=== PATIENT | female | born 1990 | race Caucasian/White ===

== ENCOUNTER 2016-09-05 11:14 | Emergency (ER) | payer MEDICAID, OTHER ==
[2016-09-05 11:25] VITALS: BP 156/118
[2016-09-05] MEDS ORDERED: diphenhydrAMINE 50 MG/ML SDV IVPUSH ONE (11:50)
[2016-09-05] MEDS ORDERED: Sodium Chloride 0.9% 10 ML Syringe FLUSH PRN (11:50)
[2016-09-05] MEDS ORDERED: Sodium Chloride 0.9% 1,000 ML IV ONE (11:50)
[2016-09-05] MEDS ORDERED: Haloperidol Lactate 5 MG/ML SDV IVPUSH ONE (11:50)
--- NOTE | 2016-09-05 11:53 | EDM.PDOC ---
ED HPI GENERAL MEDICAL PROBLEM - General Chief Complaint: Headache Stated Complaint: HEADACHE Time Seen by Provider: 09/05/16 11:32 Source of Information: Reports: Patient History Limitations: Reports: No Limitations - History of Present Illness INITIAL COMMENTS - FREE TEXT/NARRATIVE: 26-year-old female presents for evaluation and treatment of a headache. Patient reports that the headache began as a mild headache around 5 AM this morning. She states that she attempted to go back to sleep the headache and became severe and woke her from sleep around 6 AM and has been severe since. She reports that it is located across the front of her head and behind her eyes. She reports associated symptoms of nausea, vomiting, photophobia, phonophobia and intolerances to smells. She is unsure if she's having any neck pain or if this is the pain radiating from her head. Patient also complains of a sore throat which is had for the last 3-4 days. She states she has been around her nephew was recently diagnosed with strep. Patient denies any fevers, chills, back pain, cough or urinary symptoms. She denies any recent travels or new foods. She is unsure of her last menstrual period. Patient reports that she does not often gets headaches and this is the worst headache she has experienced. Onset: Today, Unknown/Unsure Location: Reports: Head Treatments [employer]: Reports: Acetaminophen base of head Pain Score (Numeric/FACES): 9 - Related Data Allergies Allergy/AdvReac Type Severity Reaction Status Date / Time fluoxetine [From Prozac] Allergy Swelling Verified 09/05/16 11:25 Sulfa (Sulfonamide Allergy Hives Verified 09/05/16 11:25 Antibiotics) antibiotic? Allergy Hives Uncoded 09/05/16 11:25 Home Meds: Home Meds Albuterol Inhaler. 2 puff INH Q4H PRN 04/19/15 [History] Losartan/Hctz. 1 tab PO DAILY 04/19/15 [History] Lovastatin. 1 tab PO DAILY 04/19/15 [History] Omeprazole [Prilosec] 40 mg PO BID 04/19/15 [History] Loperamide [Imodium] 2 mg PO ASDIRECTED 09/05/16 [History] Sertraline [Zoloft] 100 mg PO DAILY 09/05/16 [History] Past Medical History Cardiovascular History: Reports: High Cholesterol, Hypertension, Other (See Below) Other Cardiovascular History: atrial septal defect repair 1998 Respiratory History: Reports: Asthma Gastrointestinal History: Reports: GERD, Other (See Below) Other Gastrointestinal History: obesity Psychiatric History: Reports: Depression Endocrine/Metabolic History: Reports: Diabetes, Type II Social & Family History - Family History Family Medical History: Noncontributory - Tobacco Use Smoking Status *Q: Current Some Day Smoker Years of Tobacco use: 4 Packs/Tins Daily: 0.1 - Caffeine Use Caffeine Use: Reports: Soda - Recreational Drug Use Recreational Drug Use: No ED ROS GENERAL - Review of Systems Review Of Systems: See Below Constitutional: Reports: Malaise. Denies: Fever (felt warm; no documented fever ), Chills HEENT: Reports: Throat Pain. Denies: Ear Pain Respiratory: Denies: Cough GI/Abdominal: Reports: Nausea, Vomiting. Denies: Abdominal Pain : Reports: No Symptoms. Denies: Dysuria Musculoskeletal: Reports: Neck Pain (unsure if having neck pain or pain is radiating from head). Denies: Back Pain Neurological: Reports: Headache - Physical Exam Exam: See Below Exam Limited By: No Limitations General Appearance: Alert, WD/WN, Moderate Distress, Obese Eye Exam: Bilateral Eye: PERRL Ears: Normal External Exam, Normal Canal, Hearing Grossly Normal Nose: Normal Inspection Throat/Mouth: Normal Inspection, Normal Lips, Normal Voice, No Airway Compromise , Other (no tonsilar exudates, minimal posterior oropharynx erythema) Head Exam: Atraumatic, Normocephalic Neck: Normal Inspection, Supple, Non-Tender, Full Range of Motion Respiratory/Chest: No Respiratory Distress, Lungs Clear Cardiovascular: Normal Peripheral Pulses, Regular Rate, Rhythm, No Murmur Neuro Exam (Abbreviated): Alert, Oriented, Normal Cognition Back Exam: Normal Inspection. No: CVA Tenderness (L), CVA Tenderness (R) Psychiatric: Normal Affect, Normal Mood Skin Exam: Warm, Dry, Normal Color Course - Vital Signs Last Recorded V/S: Last Vital Signs Temp 36.7 C 09/05/16 11:20 Pulse 86 09/05/16 11:20 Resp 18 09/05/16 11:20 BP 156/118 H 09/05/16 11:20 Pulse Ox 100 09/05/16 11:20 - Orders/Labs/Meds Labs: Laboratory Tests 09/05/16 09/05/16 09/05/16 Range/Units 12:00 12:05 12:05 WBC 16.53 H (3.98-10.04) K/mm3 RBC 5.57 H (3.98-5.22) M/mm3 Hgb 14.6 (11.2-15.7) gm/L Hct 43.5 (34.1-44.9) % MCV 78.1 L (79.4-94.8) fl MCH 26.2 (25.6-32.2) pg MCHC 33.6 (32.2-35.5) g/dl RDW Std Deviation 37.6 (36.4-46.3) fL Plt Count 370 H (182-369) K/mm3 MPV 10.0 (9.4-12.3) fl Neut % (Auto) 70.5 (34.0-71.1) % Lymph % (Auto) 22.6 (19.3-51.7) % Chase % (Auto) 5.1 (4.7-12.5) % Eos % (Auto) 1.3 (0.7-5.8) Baso % (Auto) 0.3 (0.1-1.2) % Neut # (Auto) 11.66 H (1.56-6.13) K/mm3 Lymph # (Auto) 3.73 (1.18-3.74) K/mm3 Chase # (Auto) 0.84 H (0.24-0.36) K/mm3 Eos # (Auto) 0.21 (0.04-0.36) K/mm3 Baso # (Auto) 0.05 (0.01-0.08) K/mm3 Sodium 140 (136-145) mEq/L Potassium 4.1 (3.5-5.1) mEq/L Chloride 104 (98-107) mEq/L Carbon Dioxide 24 (21-32) mEq/L Anion Gap 16.1 H (5-15) BUN 8 (7-18) mg/dL Creatinine 0.6 (0.55-1.02) mg/dL Est Cr Clr Drug Dosing TNP Estimated GFR (MDRD) > 60 (>60) mL/min BUN/Creatinine Ratio 13.3 L (14-18) Glucose 133 H (74-106) mg/dL Calcium 9.3 (8.5-10.1) mg/dL Total Bilirubin 0.5 (0.2-1.0) mg/dL AST 20 (15-37) U/L ALT 52 (14-59) U/L Alkaline Phosphatase 74 (46-116) U/L C-Reactive Protein (<1.0) mg/dL Total Protein 8.2 (6.4-8.2) g/dl Albumin 3.9 (3.4-5.0) g/dl Globulin 4.3 gm/dL Albumin/Globulin Ratio 0.9 L (1-2) HCG, Qual (NEGATIVE) Urine Color Yellow (Yellow) Urine Appearance Clear (Clear) Urine pH 7.0 (5.0-8.0) Ur Specific [place] 1.025 (1.005-1.030) Urine Protein Negative (Negative) Urine Glucose (UA) Negative (Negative) Urine Ketones Negative (Negative) Urine Occult Blood Negative (Negative) Urine Nitrite Negative (Negative) Urine Bilirubin Negative (Negative) Urine Urobilinogen 0.2 (0.2-1.0) Ur Leukocyte Esterase Negative (Negative) Urine RBC Not seen (0-5) /hpf Urine WBC 0-5 (0-5) /hpf Ur Epithelial Cells 5-10 H (0-5) /hpf Urine Bacteria Few (FEW) /hpf Urine Mucus Few (FEW) /hpf Monoscreen (NEGATIVE) 09/05/16 09/05/16 09/05/16 Range/Units 12:05 12:05 12:05 WBC (3.98-10.04) K/mm3 RBC (3.98-5.22) M/mm3 Hgb (11.2-15.7) gm/L Hct (34.1-44.9) % MCV (79.4-94.8) fl MCH (25.6-32.2) pg MCHC (32.2-35.5) g/dl RDW Std Deviation (36.4-46.3) fL Plt Count (182-369) K/mm3 MPV (9.4-12.3) fl Neut % (Auto) (34.0-71.1) % Lymph % (Auto) (19.3-51.7) % Chase % (Auto) (4.7-12.5) % Eos % (Auto) (0.7-5.8) Baso % (Auto) (0.1-1.2) % Neut # (Auto) (1.56-6.13) K/mm3 Lymph # (Auto) (1.18-3.74) K/mm3 [place] # (Auto) (0.24-0.36) K/mm3 Eos # (Auto) (0.04-0.36) K/mm3 Baso # (Auto) (0.01-0.08) K/mm3 Sodium (136-145) mEq/L Potassium (3.5-5.1) mEq/L Chloride (98-107) mEq/L Carbon Dioxide (21-32) mEq/L Anion Gap (5-15) BUN (7-18) mg/dL Creatinine (0.55-1.02) mg/dL Est Cr Clr Drug Dosing Estimated GFR (MDRD) (>60) mL/min BUN/Creatinine Ratio (14-18) Glucose (74-106) mg/dL Calcium (8.5-10.1) mg/dL Total Bilirubin (0.2-1.0) mg/dL AST (15-37) U/L ALT (14-59) U/L Alkaline Phosphatase (46-116) U/L C-Reactive Protein 0.6 (<1.0) mg/dL Total Protein (6.4-8.2) g/dl Albumin (3.4-5.0) g/dl Globulin gm/dL Albumin/Globulin Ratio (1-2) HCG, Qual Negative (NEGATIVE) Urine Color (Yellow) Urine Appearance (Clear) Urine pH (5.0-8.0) Ur Specific [place] (1.005-1.030) Urine Protein (Negative) Urine Glucose (UA) (Negative) Urine Ketones (Negative) Urine Occult Blood (Negative) Urine Nitrite (Negative) Urine Bilirubin (Negative) Urine Urobilinogen (0.2-1.0) Ur Leukocyte Esterase (Negative) Urine RBC (0-5) /hpf Urine WBC (0-5) /hpf Ur Epithelial Cells (0-5) /hpf Urine Bacteria (FEW) /hpf Urine Mucus (FEW) /hpf Monoscreen Negative (NEGATIVE) Meds: Medications Discontinued Medications Generic Name Dose Route Start Last Admin Trade Name Freq PRN Reason Stop Dose Admin Diphenhydramine HCl 50 mg 09/05/16 11:50 09/05/16 12:13 Benadryl IVPUSH 09/05/16 11:51 50 mg ONETIME ONE Administration Haloperidol Lactate 5 mg 09/05/16 11:50 09/05/16 12:18 Haldol IVPUSH 09/05/16 11:51 5 mg ONETIME ONE Administration Sodium Chloride 1,000 mls @ 999 mls/hr 09/05/16 11:50 09/05/16 12:12 Normal Saline IV 09/05/16 12:50 999 mls/hr ONETIME ONE Administration Sodium Chloride 10 ml 09/05/16 11:50 09/05/16 12:17 Saline Flush FLUSH 10 ml ASDIRECTED PRN Administration Keep Vein Open - Radiology Interpretation Free Text/Narrative:: Ct of the head without contrast impression per [facility]: No acute findings. CT Results Date: 09/05/16 - Re-Assessments/Exams Free Text/Narrative Re-Assessment/Exam: 09/05/16 13:00 Labs returned. White blood cell count 16.53, hemoglobin 14.6 and platelets are 370. CRP is 0.6. hCG is negative. Rapid strep is negative. Chase was negative. Sodium is 140, potassium is 4.1 and chloride is 104. Anion gap is 16.1. UA is negative for any signs of infection. I reviewed the lab results with the patient. We are awaiting her CT of her head report. She reports that her headache now feels like a 6 out of 10. Will consider giving Toradol once her CT is clear. She reports that she is feels tired at this time. I believe her elevated white blood cell count is likely due to a stress response. I have a low suspicion for meningitis given her physical exam (normal neck ROM, afebrile, normal demeanor, migraine-like headache complaint). 09/05/16 13:47 Nursing staff reports her headache is now a 3 out of 10 and she feels ready to go. I have checked on the patient. She is sleeping. Free to go whenever she feels ready. 09/05/16 14:[address] report with the patient. She is tired and would like to go home at this time. Discharge instructions this documented. Departure - Departure Time of Disposition: 14:15 Disposition: Home, Self-Care 01 Condition: Fair Clinical Impression: Migraine - Discharge Information Instructions: Migraine Headache, [id number] Referrals: Catherine Mittal DO [Primary Care Provider] - Forms: ED Department Discharge Additional Instructions: Go home and rest in a dark quiet room. OTC tylenol or motrin as needed for pain. Drink plenty of fluids. Follow-up with PCP if headaches continue. Please return to the ER should your symptoms change or worsen.
--- NOTE | 2016-09-07 14:38 | CT ---
Head CT Technique: Multiple axial sections through the brain were obtained. Intravenous contrast was not utilized. Comparison: Previous head CT is not available. Findings: Ventricles along with basal cisterns and sulci over the convexities are within normal limits for the patient's age. No abnormal parenchymal densities are seen. No evidence of intracranial hemorrhage. No midline shift or mass effect is seen. Bone window settings were reviewed which show no discrete calvarial abnormality. Visualized sinuses are clear. Impression: 1. No acute intracranial abnormality is identified on noncontrast head CT study. Diagnostic code #1 I agree with preliminary report issued by [facility] ([facility] preliminary report dictated on 09/05/16, 2:27 PM Central Time)
== END 2016-09-05 14:35 | disposition home or self-care (01) ==
LOC: JD.ED 11:14
DX: G43.909 Migraine, unspecified, not intractable, without status migrainosus (principal); J45.909 Unspecified asthma, uncomplicated; F32.9 Major depressive disorder, single episode, unspecified; E11.9 Type 2 diabetes mellitus without complications; E78.00 Pure hypercholesterolemia, unspecified; I10 Essential (primary) hypertension; F17.210 Nicotine dependence, cigarettes, uncomplicated; Z88.2 Allergy status to sulfonamides; Z88.1 Allergy status to other antibiotic agents; Z79.899 Other long term (current) drug therapy
CPT/HCPCS: 36415; 70450; 80053; 81001; 84703; 85025; 86140; 86308; 87081; 87430; 96361; 96374; 96375; 99284; J1200; J1630; J7040; J7050

== ENCOUNTER 2018-06-09 11:05 | Emergency (ER) | payer BC, OTHER ==
[2018-06-09 11:39] VITALS: BP 146/90
[2018-06-09] MEDS ORDERED: Ondansetron 4 MG/2 ML SDV IVPUSH ONE (12:14)
[2018-06-09] MEDS ORDERED: Sodium Chloride 0.9% 10 ML Syringe FLUSH PRN (12:14)
[2018-06-09] MEDS ORDERED: Sodium Chloride 0.9% 1,000 ML IV SCH (12:15)
--- NOTE | 2018-06-09 15:43 | EDM.PDOC ---
ED HPI GENERAL MEDICAL PROBLEM - General Chief Complaint: Abdominal Pain Stated Complaint: RECENT GASTRIC BYPASS-DIARRHEA,STOMACH PAIN Time Seen by Provider: 06/09/18 12:13 Source of Information: Reports: Patient, RN Notes Reviewed - History of Present Illness INITIAL COMMENTS - FREE TEXT/NARRATIVE: 27-year-old female had onset of abdominal pain, nausea and diarrhea yesterday that continues today. Quite frequent watery diarrhea yesterday, less frequent today. She's had nausea but not vomiting. She had a gastric bypass procedure done about 2 and half weeks ago so that is of concern to her. No fever or chills. No chest pain or difficulty breathing. Left Upper Abdomen Pain Score (Numeric/FACES): 4 - Related Data Allergies Allergy/AdvReac Type Severity Reaction Status Date / Time cephalexin Allergy Hives Verified 06/09/18 11:32 fluoxetine [From Prozac] Allergy Swelling Verified 09/05/16 11:25 Sulfa (Sulfonamide Allergy Hives Verified 09/05/16 11:25 Antibiotics) Home Meds: Home Meds Albuterol Inhaler. 2 puff INH Q4H PRN 04/19/15 [History] Losartan/Hctz. 1 tab PO DAILY 04/19/15 [History] Lovastatin. 1 tab PO DAILY 04/19/15 [History] Omeprazole [Prilosec] 40 mg PO BID 04/19/15 [History] Sertraline [Zoloft] 100 mg PO DAILY 09/05/16 [History] Dulaglutide [Trulicity] 1.5 mg SQ WEEKLY 06/09/18 [History] Ondansetron [Zofran ODT] 4 mg PO Q6H PRN #14 tab.dis 06/09/18 [Rx] Past Medical History Cardiovascular History: Reports: High Cholesterol, Hypertension, Other (See Below) Other Cardiovascular History: atrial septal defect repair 1998 Respiratory History: Reports: Asthma Gastrointestinal History: Reports: GERD, Other (See Below) Other Gastrointestinal History: obesity Psychiatric History: Reports: Depression Endocrine/Metabolic History: Reports: Diabetes, Type II Social & Family History - Family History Family Medical History: Noncontributory - Tobacco Use Smoking Status *Q: Current Every Day Smoker Years of Tobacco use: 9 Packs/Tins Daily: 1 - Caffeine Use Caffeine Use: Reports: None - Recreational Drug Use Recreational Drug Use: No ED ROS GENERAL - Review of Systems Review Of Systems: See Below Constitutional: Reports: Chills. Denies: Fever HEENT: Denies: Throat Pain Respiratory: Denies: Shortness of Breath Cardiovascular: Denies: Chest Pain GI/Abdominal: Reports: Abdominal Pain, Diarrhea, Nausea. Denies: Hematochezia, Melena, Vomiting Musculoskeletal: Reports: No Symptoms Skin: Reports: No Symptoms Neurological: Reports: No Symptoms ED EXAM, GI/ABD - Physical Exam Exam: See Below General Appearance: Alert, Mild Distress Eyes: Bilateral: Normal Appearance Throat/Mouth: Normal Inspection, Normal Oropharynx Head: Atraumatic Neck: Supple Respiratory/Chest: No Respiratory Distress, Lungs Clear, Normal Breath Sounds Cardiovascular: Regular Rate, Rhythm GI/Abdominal Exam: Tender (Upper mid abdomen and mid abdomen, lower abdomen soft and nontender). No: Guarding, Rebound Extremities: Normal Inspection, Normal Range of Motion Neurological: Alert, Oriented, No Motor/Sensory Deficits Skin Exam: Warm, Dry, Normal Color Course - Vital Signs Last Recorded V/S: Last Vital Signs Temp 99 F 06/09/18 11:36 Pulse 78 06/09/18 11:36 Resp 18 06/09/18 11:36 BP 146/90 H 06/09/18 11:36 Pulse Ox 98 06/09/18 11:36 - Orders/Labs/Meds Orders: Active Orders 24 hr Category Date Time Status Peripheral IV Care [RC] . DIRECTED Care 06/09/18 12:14 Active Abdomen 2V AP Flat Upright [CR] Stat Exams 06/09/18 12:15 Taken Peripheral IV Insertion Adult [OM.PC] Stat Oth 06/09/18 12:14 Ordered Labs: Laboratory Tests 06/09/18 06/09/18 06/09/18 Range/Units 12:30 12:30 12:30 WBC 11.32 H (3.98-10.04) K/mm3 RBC 5.30 H (3.98-5.22) M/mm3 Hgb 13.5 (11.2-15.7) gm/L Hct 41.5 (34.1-44.9) % MCV 78.3 L (79.4-94.8) fl MCH 25.5 L (25.6-32.2) pg MCHC 32.5 (32.2-35.5) g/dl RDW Std Deviation 39.4 (36.4-46.3) fL Plt Count 369 (182-369) K/mm3 MPV 10.3 (9.4-12.3) fl Neut % (Auto) 62.2 (34.0-71.1) % Lymph % (Auto) 29.3 (19.3-51.7) % [place] % (Auto) 5.9 (4.7-12.5) % Eos % (Auto) 1.9 (0.7-5.8) Baso % (Auto) 0.3 (0.1-1.2) % Neut # (Auto) 7.05 H (1.56-6.13) K/mm3 Lymph # (Auto) 3.32 (1.18-3.74) K/mm3 [place] # (Auto) 0.67 H (0.24-0.36) K/mm3 Eos # (Auto) 0.21 (0.04-0.36) K/mm3 Baso # (Auto) 0.03 (0.01-0.08) K/mm3 Sodium 140 (136-145) mEq/L Potassium 3.9 (3.5-5.1) mEq/L Chloride 104 (98-107) mEq/L Carbon Dioxide 23 (21-32) mEq/L Anion Gap 16.9 H (5-15) BUN 9 (7-18) mg/dL Creatinine 0.6 (0.55-1.02) mg/dL Est Cr Clr Drug Dosing 134.54 mL/min Estimated GFR (MDRD) > 60 (>60) mL/min BUN/Creatinine Ratio 15.0 (14-18) Glucose 80 (74-106) mg/dL Calcium 9.4 (8.5-10.1) mg/dL Total Bilirubin 0.4 (0.2-1.0) mg/dL AST 19 (15-37) U/L ALT 46 (14-59) U/L Alkaline Phosphatase 63 (46-116) U/L Total Protein 7.8 (6.4-8.2) g/dl Albumin 3.7 (3.4-5.0) g/dl Globulin 4.1 gm/dL Albumin/Globulin Ratio 0.9 L (1-2) HCG, Qual Negative (NEGATIVE) Meds: Medications Discontinued Medications Generic Name Dose Route Start Last Admin Trade Name Freq PRN Reason Stop Dose Admin Sodium Chloride 1,000 mls @ 999 mls/hr 06/09/18 12:15 06/09/18 12:54 Normal Saline IV 999 mls/hr ONETIME ELLIS Administration Ondansetron HCl 4 mg 06/09/18 12:14 06/09/18 12:55 Zofran IVPUSH 06/09/18 12:15 4 mg ONETIME ONE Administration Sodium Chloride 10 ml 06/09/18 12:14 06/09/18 12:55 Saline Flush FLUSH 10 ml ASDIRECTED PRN Administration Keep Vein Open - Re-Assessments/Exams Free Text/Narrative Re-Assessment/Exam: 06/09/18 19:26 Labs did come back relatively normal white blood count, anion gap 30 mildly high. Did give 1 L of fluid and zofran IVl With that she was feeling much better. Discharge instructions as documented. Flat and upright of the abdomen looked fine. Departure - Departure Time of Disposition: 15:39 Disposition: Home, Self-Care 01 Clinical Impression: Abdominal pain Qualifiers: Abdominal location: upper abdomen, unspecified Qualified Code(s): R10.10 - Upper abdominal pain, unspecified Diarrhea Qualifiers: Diarrhea type: unspecified type Qualified Code(s): R19.7 - Diarrhea, unspecified Vomiting Qualifiers: Vomiting type: unspecified Vomiting Intractability: non-intractable - Discharge Information Prescriptions: Ondansetron [Zofran ODT] 4 mg PO Q6H PRN #14 tab.dis PRN Reason: Vomiting Instructions: Vomiting, Adult, Diarrhea, Adult, [id number] Referrals: Maribel Khalil PA-C [Primary Care Provider] - Forms: ED Department Discharge Additional Instructions: Clear liquids until this evening, then very careful bland diet as tolerated. Zofran every 6-8 hours if needed for further nausea or vomiting. Also recommend that you start probiotic and take that twice daily for the next week and thereafter as needed. Follow-up with your regular medical provider in about 3 or 4 days for recheck, return to ED as needed if symptoms worsening in any way. - My Orders Last 24 Hours: My Active Orders 06/09/18 12:14 Peripheral IV Care [RC] . DIRECTED Peripheral IV Insertion Adult [OM.PC] Stat 06/09/18 12:15 Abdomen 2V AP Flat Upright [CR] Stat - Assessment/Plan Last 24 Hours: My Active Orders 06/09/18 12:14 Peripheral IV Care [RC] . DIRECTED Peripheral IV Insertion Adult [OM.PC] Stat 06/09/18 12:15 Abdomen 2V AP Flat Upright [CR] Stat
--- NOTE | 2018-06-10 07:19 | CR ---
Abdomen: Supine and upright views of the abdomen were obtained. Comparison: No prior abdominal imaging. Slightly prominent gas within small bowel loops is seen which shows no significant dilatation. Surgical anastomotic sutures are seen within the left upper abdomen. Bowel gas pattern is otherwise unremarkable. Bony structures are unremarkable. Impression: 1. Slightly prominent gas within nondilated small bowel loops within the left upper abdomen. Minimal partial obstruction or slight ileus is possible. 2. Previous abdominal surgery. Diagnostic code #3 MTDD
== END 2018-06-09 16:08 | disposition home or self-care (01) ==
LOC: JD.ED 11:05
DX: R10.10 Upper abdominal pain, unspecified (principal); R19.7 Diarrhea, unspecified; R11.2 Nausea with vomiting, unspecified; E78.00 Pure hypercholesterolemia, unspecified; I10 Essential (primary) hypertension; E11.9 Type 2 diabetes mellitus without complications; F17.210 Nicotine dependence, cigarettes, uncomplicated; Z88.8 Allergy status to other drugs, medicaments and biological substances; Z79.899 Other long term (current) drug therapy
CPT/HCPCS: 36415; 74019; 80053; 84703; 85025; 96361; 96374; 99284; J2405; J7040

== ENCOUNTER 2019-01-09 14:36 | Emergency (ER) | payer BC ==
[2019-01-09 14:49] VITALS: BP 155/87; PULSE 68
[2019-01-09] MEDS ORDERED: Sodium Chloride 0.9% 10 ML Syringe FLUSH PRN (15:05)
[2019-01-09 16:17] LABS: HEMOGLOBIN A1C 5.4 % (4.50-6.20)
[2019-01-09] MEDS ORDERED: HYDROmorphone 1 MG/ML Syringe IVPUSH ONE (17:13)
--- NOTE | 2019-01-09 17:19 | EDM.PDOC ---
ED HPI GENERAL MEDICAL PROBLEM - General Chief Complaint: Diabetic Complaint Stated Complaint: LOW BLOOD SUGAR Time Seen by Provider: 01/09/19 14:43 Source of Information: Reports: Patient History Limitations: Reports: No Limitations - History of Present Illness INITIAL COMMENTS - FREE TEXT/NARRATIVE: The patient presents with hypoglycemia and a headache. She has a history of type II diabetes but she had gastric bypass in the past year and lost weight. Now she is diet controlled. She is off all of her diabetes meds. She has a glucometer and she was taking her blood sugars and they have been up and down with a headache. She has been as low at 50. She is sucking a sucker when she comes in and bedside glucose was 63. She has no fever, chills, cough, chest pain or shortness of breath. She has no abdominal pain, nausea or vomiting. She has no numbness or weakness. Onset: Gradual Duration: Day(s): (4) Location: Reports: Head Quality: Reports: Ache Severity: Moderate Improves with: Reports: None Worsens with: Reports: None Associated Symptoms: Reports: No Other Symptoms Headache Pain Score (Numeric/FACES): 5 - Related Data Allergies Allergy/AdvReac Type Severity Reaction Status Date / Time cephalexin Allergy Hives Verified 06/09/18 11:32 fluoxetine [From Prozac] Allergy Swelling Verified 09/05/16 11:25 NSAIDS (Non-Steroidal Allergy Stomach Verified 01/09/19 14:49 Anti-Inflamma Upset Sulfa (Sulfonamide Allergy Hives Verified 09/05/16 11:25 Antibiotics) Home Meds: Home Meds Albuterol Inhaler. 2 puff INH Q4H PRN 04/19/15 [History] Losartan/Hctz. 75 mg PO DAILY 04/19/15 [History] Sertraline [Zoloft] 100 mg PO DAILY 09/05/16 [History] Past Medical History Cardiovascular History: Reports: High Cholesterol, Hypertension, Other (See Below) Other Cardiovascular History: atrial septal defect repair 1998 Respiratory History: Reports: Asthma Gastrointestinal History: Reports: GERD, Other (See Below) Other Gastrointestinal History: obesity Psychiatric History: Reports: Depression Endocrine/Metabolic History: Reports: Diabetes, Type II Social & Family History - Family History Family Medical History: Noncontributory - Tobacco Use Smoking Status *Q: Never Smoker - Caffeine Use Caffeine Use: Reports: None ED ROS GENERAL - Review of Systems Review Of Systems: See Below Constitutional: Reports: No Symptoms HEENT: Reports: No Symptoms Respiratory: Reports: No Symptoms Cardiovascular: Reports: No Symptoms Endocrine: Reports: No Symptoms GI/Abdominal: Reports: No Symptoms : Reports: No Symptoms Musculoskeletal: Reports: No Symptoms Skin: Reports: No Symptoms Neurological: Reports: Headache ED EXAM GENERAL NO PERIP PULSE - Physical Exam Exam: See Below Exam Limited By: No Limitations General Appearance: Alert, No Apparent Distress Ears: Normal External Exam Nose: Normal Inspection Head: Atraumatic, Normocephalic Neck: Normal Inspection Respiratory/Chest: No Respiratory Distress, Lungs Clear, Normal Breath Sounds Cardiovascular: Regular Rate, Rhythm, No Edema, No Murmur GI/Abdominal: Soft, Non-Tender, No Organomegaly, No Mass Back Exam: Normal Inspection Extremities: Normal Inspection Neurological: Alert, Oriented, No Motor/Sensory Deficits Course - Vital Signs Last Recorded V/S: Last Vital Signs Temp 98.3 F 01/09/19 14:44 Pulse 68 01/09/19 14:44 Resp 16 01/09/19 14:44 BP 155/87 H 01/09/19 14:44 Pulse Ox 96 01/09/19 14:44 - Orders/Labs/Meds Orders: Active Orders 24 hr Category Date Time Status Accu Check [Blood Glucose Check, Bedside] [RC] ONETIME Care 01/09/19 17:13 Active Glucose [Blood Glucose Check, Bedside] [RC] ONETIME Care 01/09/19 14:46 Active Peripheral IV Care [RC] . DIRECTED Care 01/09/19 15:06 Active Sodium Chloride 0.9% [Saline Flush] Med 01/09/19 15:05 Active 10 ml FLUSH ASDIRECTED PRN Peripheral IV Insertion Adult [OM.PC] Stat Oth 01/09/19 15:05 Ordered Medication Orders Sodium Chloride (Saline Flush) 10 ml FLUSH ASDIRECTED PRN PRN Reason: Keep Vein Open Last Admin: 01/09/19 16:00 Dose: 10 ml Labs: Laboratory Tests 01/09/19 01/09/19 01/09/19 Range/Units 14:46 15:30 15:36 WBC 9.91 (3.98-10.04) K/mm3 RBC 5.28 H (3.98-5.22) M/mm3 Hgb 14.2 (11.2-15.7) gm/dl Hct 42.8 (34.1-44.9) % MCV 81.1 (79.4-94.8) fl MCH 26.9 (25.6-32.2) pg MCHC 33.2 (32.2-35.5) g/dl RDW Std Deviation 39.2 (36.4-46.3) fL Plt Count 367 (182-369) K/mm3 MPV 10.3 (9.4-12.3) fl Neut % (Auto) 52.2 (34.0-71.1) % Lymph % (Auto) 36.5 (19.3-51.7) % Amelia % (Auto) 6.7 (4.7-12.5) % Eos % (Auto) 3.9 (0.7-5.8) Baso % (Auto) 0.5 (0.1-1.2) % Neut # (Auto) 5.17 (1.56-6.13) K/mm3 Lymph # (Auto) 3.62 (1.18-3.74) K/mm3 Amelia # (Auto) 0.66 H (0.24-0.36) K/mm3 Eos # (Auto) 0.39 H (0.04-0.36) K/mm3 Baso # (Auto) 0.05 (0.01-0.08) K/mm3 Sodium (136-145) mEq/L Potassium (3.5-5.1) mEq/L Chloride (98-107) mEq/L Carbon Dioxide (21-32) mEq/L Anion Gap (5-15) BUN (7-18) mg/dL Creatinine (0.55-1.02) mg/dL Est Cr Clr Drug Dosing mL/min Estimated GFR (MDRD) (>60) mL/min BUN/Creatinine Ratio (14-18) Glucose (74-106) mg/dL POC Glucose 63 L (70-105) mg/dL Hemoglobin A1c (4.50-6.20) % Calcium (8.5-10.1) mg/dL Total Bilirubin (0.2-1.0) mg/dL AST (15-37) U/L ALT (14-59) U/L Alkaline Phosphatase (46-116) U/L Total Protein (6.4-8.2) g/dl Albumin (3.4-5.0) g/dl Globulin gm/dL Albumin/Globulin Ratio (1-2) Urine Color Yellow (Yellow) Urine Appearance Clear (Clear) Urine pH 6.5 (5.0-8.0) Ur Specific [place] 1.020 (1.005-1.030) Urine Protein Negative (Negative) Urine Glucose (UA) Negative (Negative) Urine Ketones Negative (Negative) Urine Occult Blood 1+ H (Negative) Urine Nitrite Negative (Negative) Urine Bilirubin Negative (Negative) Urine Urobilinogen 0.2 (0.2-1.0) Ur Leukocyte Esterase Negative (Negative) Urine RBC 0-5 (0-5) /hpf Urine WBC 0-5 (0-5) /hpf Ur Squamous Epith Cells 5-10 H (0-5) /hpf Urine Bacteria Moderate H (FEW) /hpf Urine Mucus Not seen (FEW) /hpf 01/09/19 01/09/19 01/09/19 Range/Units 15:36 15:36 17:13 WBC (3.98-10.04) K/mm3 RBC (3.98-5.22) M/mm3 Hgb (11.2-15.7) gm/dl Hct (34.1-44.9) % MCV (79.4-94.8) fl MCH (25.6-32.2) pg MCHC (32.2-35.5) g/dl RDW Std Deviation (36.4-46.3) fL Plt Count (182-369) K/mm3 MPV (9.4-12.3) fl Neut % (Auto) (34.0-71.1) % Lymph % (Auto) (19.3-51.7) % Amelia % (Auto) (4.7-12.5) % Eos % (Auto) (0.7-5.8) Baso % (Auto) (0.1-1.2) % Neut # (Auto) (1.56-6.13) K/mm3 Lymph # (Auto) (1.18-3.74) K/mm3 Amelia # (Auto) (0.24-0.36) K/mm3 Eos # (Auto) (0.04-0.36) K/mm3 Baso # (Auto) (0.01-0.08) K/mm3 Sodium 140 (136-145) mEq/L Potassium 3.9 (3.5-5.1) mEq/L Chloride 105 (98-107) mEq/L Carbon Dioxide 25 (21-32) mEq/L Anion Gap 13.9 (5-15) BUN 11 (7-18) mg/dL Creatinine 0.5 L (0.55-1.02) mg/dL Est Cr Clr Drug Dosing 159.99 mL/min Estimated GFR (MDRD) > 60 (>60) mL/min BUN/Creatinine Ratio 22.0 H (14-18) Glucose 75 (74-106) mg/dL POC Glucose 80 (70-105) mg/dL Hemoglobin A1c 5.40 (4.50-6.20) % Calcium 9.4 (8.5-10.1) mg/dL Total Bilirubin 0.3 (0.2-1.0) mg/dL AST 14 L (15-37) U/L ALT 26 (14-59) U/L Alkaline Phosphatase 68 (46-116) U/L Total Protein 7.7 (6.4-8.2) g/dl Albumin 4.0 (3.4-5.0) g/dl Globulin 3.7 gm/dL Albumin/Globulin Ratio 1.1 (1-2) Urine Color (Yellow) Urine Appearance (Clear) Urine pH (5.0-8.0) Ur Specific [place] (1.005-1.030) Urine Protein (Negative) Urine Glucose (UA) (Negative) Urine Ketones (Negative) Urine Occult Blood (Negative) Urine Nitrite (Negative) Urine Bilirubin (Negative) Urine Urobilinogen (0.2-1.0) Ur Leukocyte Esterase (Negative) Urine RBC (0-5) /hpf Urine WBC (0-5) /hpf Ur Squamous Epith Cells (0-5) /hpf Urine Bacteria (FEW) /hpf Urine Mucus (FEW) /hpf Meds: Medications Generic Name Dose Route Start Last Admin Trade Name Freq PRN Reason Stop Dose Admin Sodium Chloride 10 ml 01/09/19 15:05 01/09/19 16:00 Saline Flush FLUSH 10 ml ASDIRECTED PRN Administration Keep Vein Open Discontinued Medications Generic Name Dose Route Start Last Admin Trade Name Freq PRN Reason Stop Dose Admin Hydromorphone HCl 1 mg 01/09/19 17:13 01/09/19 17:29 Dilaudid IVPUSH 01/09/19 17:14 1 mg ONETIME ONE Administration - Re-Assessments/Exams Free Text/Narrative Re-Assessment/Exam: 01/09/19 17:24 I ordered an IV saline lock and labs. The patient would like to keep taking the sucker for sugar. Juice makes her nauseated. Her CBC looks good. Her bed side glucose is 63. Her glucose by blood draw was 75. Her UA shows no UTI. She still has a headache so I ordered some dilaudid 1mg IV. 01/09/19 17:27 Her bedside glucose was 80. Departure - Departure Time of Disposition: 18:00 Disposition: Home, Self-Care 01 Condition: Good Clinical Impression: Hypoglycemia Headache Qualifiers: Headache type: unspecified Headache chronicity pattern: acute headache Intractability: not intractable Qualified Code(s): R51 - Headache - Discharge Information *PRESCRIPTION DRUG MONITORING PROGRAM REVIEWED*: No *COPY OF PRESCRIPTION DRUG MONITORING REPORT IN PATIENT DIYA: No Referrals: Maribel Khalil PA-C [Primary Care Provider] - 1 Day Forms: ED Department Discharge Additional Instructions: Follow up with your provider tomorrow. At this time I am not finding a reason for your hypoglycemia. Talk to your provider about continuous glucose monitoring to get more data to see what is going on through the day. Please return if you are worse. - My Orders Last 24 Hours: My Active Orders 01/09/19 14:46 Glucose [Blood Glucose Check, Bedside] [RC] ONETIME 01/09/19 15:05 Sodium Chloride 0.9% [Saline Flush] 10 ml FLUSH ASDIRECTED PRN Peripheral IV Insertion Adult [OM.PC] Stat 01/09/19 15:06 Peripheral IV Care [RC] . DIRECTED 01/09/19 17:13 Accu Check [Blood Glucose Check, Bedside] [RC] ONETIME - Assessment/Plan Last 24 Hours: My Active Orders 01/09/19 14:46 Glucose [Blood Glucose Check, Bedside] [RC] ONETIME 01/09/19 15:05 Sodium Chloride 0.9% [Saline Flush] 10 ml FLUSH ASDIRECTED PRN Peripheral IV Insertion Adult [OM.PC] Stat 01/09/19 15:06 Peripheral IV Care [RC] . DIRECTED 01/09/19 17:13 Accu Check [Blood Glucose Check, Bedside] [RC] ONETIME
== END 2019-01-09 18:02 | disposition home or self-care (01) ==
LOC: JD.ED 14:36
DX: E11.649 Type 2 diabetes mellitus with hypoglycemia without coma (principal); R51 Headache; I10 Essential (primary) hypertension; J45.909 Unspecified asthma, uncomplicated; F32.9 Major depressive disorder, single episode, unspecified; E66.9 Obesity, unspecified; Z68.35 Body mass index [BMI] 35.0-35.9, adult; Z88.8 Allergy status to other drugs, medicaments and biological substances; Z88.1 Allergy status to other antibiotic agents; Z88.6 Allergy status to analgesic agent; Z88.2 Allergy status to sulfonamides; Z79.899 Other long term (current) drug therapy; Z98.84 Bariatric surgery status
CPT/HCPCS: 36415; 80053; 81001; 82962; 83036; 85025; 96374; 99284; J1170

== ENCOUNTER 2019-05-22 15:46 | Day surgery (SDC) | payer BC ==
[2019-05-22] MEDS ORDERED: Clindamycin Phosphate in D5W 600 MG in Premix Bag 1 BAG IV ONE ×2 (15:53)
[2019-05-22] MEDS ORDERED: Clindamycin Phosphate in D5W 900 MG in Premix Bag 1 BAG IV ONE ×2 (16:08)
--- NOTE | 2019-05-22 16:26 | PCM.PREANE ---
Preanesthetic Assessment - Anesthesia/Transfusion/Family Hx Anesthesia History: Prior Anesthesia Without Reaction Family History of Anesthesia Reaction: No Transfusion History: No Prior Transfusion(s) Intubation History: Unknown - Review of Systems General: No Symptoms, Weakness, Malaise Pulmonary: No Symptoms (History of asthma/Smoker:0.75 ppd times 16 years/ETOH occasionally) Cardiovascular: No Symptoms (history of HTN, elevated cholesterol/Atrial septal defect repair done in 1998), Lightheadedness (hypoglycemia) Gastrointestinal: No Symptoms (history of gastric bypass surgery 2018/GERD- improved), Abdominal Pain (06/29), Decreased Appetite Neurological: No Symptoms Other: Reports: Diabetes (diet controlled/episodes of hypoglycemia noted), Liver Problems (fatty liver), Depression, Anxiety - Physical Assessment NPO Status Date: 05/22/19 NPO Status Time: 01:00 Vital Signs: HR:68 BP:142/88 SAT:95% TEMP:98 RESP:16 Height: 1.7 m Weight: 96 kg ASA Class: 2E Mental Status: Alert & Oriented x3 Airway Class: Mallampati = 2 Dentition: Reports: Normal Dentition, Caries Thyro-Mental Finger Breadths: 3 Mouth Opening Finger Breadths: 3 ROM/Head Extension: Full Lungs: Clear to Auscultation, Normal Respiratory Effort Cardiovascular: Regular Rate, Regular Rhythm, No Murmurs - Lab Values: All labs reviewed and noted and within acceptable ranges to proceed with scheduled procedure. - Imaging/EKG Impressions: EKG: SR rate= 78(2018) - Allergies Allergies/Adverse Reactions: Allergies Allergy/AdvReac Type Severity Reaction Status Date / Time cephalexin Allergy Hives Verified 06/09/18 11:32 fluoxetine [From Prozac] Allergy Swelling Verified 09/05/16 11:25 NSAIDS (Non-Steroidal Allergy Stomach Verified 01/09/19 14:49 Anti-Inflamma Upset Sulfa (Sulfonamide Allergy Hives Verified 09/05/16 11:25 Antibiotics) - Anesthesia Plan Pre-Op Medication Ordered: None - Acknowledgements Anesthesia Type Planned: General Anesthesia Pt an Appropriate Candidate for the Planned Anesthesia: Yes Alternatives and Risks of Anesthesia Discussed w Pt/Guardian: Yes Pt/Guardian Understands and Agrees with Anesthesia Plan: Yes PreAnesthesia Questionnaire Cardiovascular History: Reports: High Cholesterol, Hypertension, Other (See Below) Other Cardiovascular History: atrial septal defect repair 1998 Respiratory History: Reports: Asthma Gastrointestinal History: Reports: GERD, Other (See Below) Other Gastrointestinal History: obesity Psychiatric History: Reports: Depression Endocrine/Metabolic History: Reports: Diabetes, Type II - HOME MEDS Home Medications: Home Meds Albuterol Inhaler. 2 puff INH Q4H PRN 04/19/15 [History] Losartan/Hctz. 75 mg PO DAILY 04/19/15 [History] Sertraline [Zoloft] 100 mg PO DAILY 09/05/16 [History] - CURRENT (IN HOUSE) MEDS Current Meds: Current Medications Clindamycin Phosphate 900 mg/ (Premix) 50 mls @ 100 mls/hr IV ONETIME ONE Stop: 05/22/19 16:37 Discontinued Medications Bupivacaine HCl/Epinephrine Bitart (Marcaine 0.5%/Epinephrine 1:200,000) Confirm Administered Dose 50 ml .ROUTE .STK-MED ONE Stop: 05/22/19 16:14 Clindamycin Phosphate 600 mg/ (Premix) 33.3333 mls @ 100 mls/hr IV ONETIME ONE Stop: 05/22/19 16:12 Lidocaine/Epinephrine (Xylocaine 1% With Epinephrine 1:100,000) Confirm Administered Dose 40 ml .ROUTE .STK-MED ONE Stop: 05/22/19 16:14
[2019-05-22] MEDS ORDERED: Lidocaine 1% 2 ML ONE (17:00)
[2019-05-22] MEDS ORDERED: HYDROmorphone 0.5 MG/0.5 ML Syringe ONE ×3 (17:09→18:36)
[2019-05-22] MEDS ORDERED: Midazolam 1 MG/ML 2 ML SDV ONE (17:09)
[2019-05-22] MEDS ORDERED: Dexamethasone 4 MG/ML 5 ML MDV ONE (17:09)
[2019-05-22] MEDS ORDERED: Rocuronium 50 MG/5 ML Vial ONE (17:09)
[2019-05-22] MEDS ORDERED: Propofol 200 MG/20 ML SDV ONE (17:09)
[2019-05-22] MEDS ORDERED: Lidocaine 1% 6 ML ONE (17:09)
[2019-05-22] MEDS ORDERED: Ondansetron 4 MG/2 ML SDV ONE (17:09)
[2019-05-22] MEDS ORDERED: Succinylcholine/Sod PF 100 MG/5 ML SYRINGE IV ONE (17:09)
[2019-05-22] MEDS ORDERED: fentaNYL 250 MCG/5 ML SDV ONE (17:10)
[2019-05-22] MEDS ORDERED: 50% Dextrose in Water 50 ML Syringe ONE (17:13)
[2019-05-22] MEDS ORDERED: fentaNYL 100 MCG/2 ML SDV IVPUSH PRN (17:31)
[2019-05-22] MEDS ORDERED: diphenhydrAMINE 50 MG/ML SDV IVPUSH PRN (17:31)
[2019-05-22] MEDS ORDERED: HYDROmorphone 0.5 MG/0.5 ML Syringe IVPUSH PRN (17:31)
[2019-05-22] MEDS ORDERED: Albuterol 0.083% 2.5 MG/3 ML Neb Soln NEB PRN (17:31)
[2019-05-22] MEDS ORDERED: ePHEDrine 50 MG/ML SDV IVPUSH PRN (17:31)
[2019-05-22] MEDS ORDERED: Ondansetron 4 MG/2 ML SDV IVPUSH PRN (17:31)
[2019-05-22] MEDS: Lidocaine 1% with EPINEPHrine 1:100,000 20 ML MDV ONE ×2 (17:42→17:45)
[2019-05-22] MEDS: Bupivacaine 0.5%/EPINEPHrine 1:200,000 50 ML MDV ONE ×2 (17:42→17:45)
[2019-05-22] MEDS ORDERED: Phenylephrine 1 MG in Sodium Chloride 0.9% 10 ML IV SCH (17:45)
--- NOTE | 2019-05-22 18:48 | PCM.OPNOTE ---
- General Post-Op/Procedure Note Date of Surgery/Procedure: 05/22/19 Operative Procedure(s): Laparoscopic cholecystectomy Findings: distended gallbladder with stones Pre Op Diagnosis: acute cholecystitis Post-Op Diagnosis: same Anesthesia Technique: General ET Tube Primary Surgeon: Abby Partida Anesthesia Provider: Vivi Victoria Pathology: gallbladder with contents Fluid Replacement, Intraop: 1,200 Output, Urine Amount: 0 EBL in mLs: 0 Complications: none apparent Condition: Good
--- NOTE | 2019-05-22 18:52 | PCM.PRNOTE ---
- Free Text/Narrative Note: OPERATIVE REPORT Date of Surgery/Procedure: May 22, 2019 Operative Procedure(s): laparoscopic cholecystectomy Findings: Distended gallbladder with stones Pre Op Diagnosis: Acute cholecystitis Post-Op Diagnosis: Same Anesthesia Technique: General ET Tube Primary Surgeon: Abby Partida MD Anesthesia Provider: Vivi Victoria CRNA Pathology: Gallbladder with contents Fluid Replacement, Intraop: 1200cc Output, Urine Amount: 0cc EBL: 10cc Drain/Tube Comments: none Indication for the procedure: The patient is a 28-year-old lady who presented to my office with a 5-day history of right upper quadrant pain. She was scheduled for surgery and proceeded to have a repeat CBC. She had evidence of continued white count. Was evident at this point that she had acute cholecystitis and the patient was counseled to proceed to the emergency department for admission and surgery. The patient was counseled for laparoscopic cholecystectomy, with possible conversion to open. After discussion of the risks of infection, bleeding and injury to the bile duct as well as increased complication from previous intra-abdominal surgery, the patient's consent was obtained. Description of the procedure: The patient presented to the outpatient holding area on the day of the procedure. The history and physical were verified and consent was present and on the chart. The patient was taken back to the operating room and placed in supine position on the operating table. SCD boots were placed and functional prior to the start of the procedure. Preoperative antibiotics were administered according to SCIP protocol, clindamycin 900 mg IV. A surgical timeout was performed. The patient then had induction of general anesthesia and was intubated without difficulty. The patient was prepped and draped in standard surgical fashion. We began by making an infraumbilical vertical incision and deepened this down through subcutaneous fat to the level of the fascia. This was grasped and incised. We bluntly entered through the peritoneum and a finger sweep was done. A stay suture of 0 Vicryl was placed in the fascia. The 12 mm balloon Corey port was then inserted into the abdomen and the balloon inflated. Insufflation was attached and we had appropriate opening pressures. The abdomen was then insufflated to 15 mmHg. We inserted a scope into the abdomen and inspected the area where we had entered. There was no evidence of injury to surrounding structures with no evidence of bile or bleeding. A TAP block was then performed using 1% lidocaine with epinephrine mixed with 0.5% bupivacaine with epinephrine. The patient was then positioned with head up and right side up to facilitate exposure of the gallbladder. We then proceeded with placing our additional ports. A 5mm port was placed in the epigastric region. Two additional 5mm ports placed under direct visualization in the right upper quadrant. Once we had sufficiently exposed the dome of the gallbladder. This was grasped and retracted cephalad. We proceeded with our dissection to expose the cystic duct and cystic artery. We did have a critical view. The cystic duct and artery were then clipped and cut using endoscopic scissors. We then proceeded to fully dissect the gallbladder off of the cystic plate using the Bovie device. The gallbladder was then placed in the Endo Catch bag and withdrawn towards the umbilical port. We then inspected the area of the dissection. A Surgicel was placed into the abdomen for hemostasis. A Ray-Samantha was then also inserted to remove any blood. After the Surgicel had been in place, it was removed and there was good hemostasis. We then inspected the port sites and desufflated the abdomen. The ports were then removed. The gallbladder was withdrawn through the umbilical port site. We then proceeded to close the umbilical port site using an 0 Vicryl stitch. We had good closure of the fascia. A superficial 4-0 monocryl suture was used to approximate the skin. The skin was covered with Dermabond surgical glue. The patient tolerated the procedure well and was extubated without difficulty. He was transported to the PACU in stable condition. All sponge, needle counts correct. I was scrubbed and actively participated in the entire procedure. No immediate complications noted. Complications: None apparent Condition: Good Abby Partida MD General Surgery
[2019-05-22] MEDS ORDERED: Meperidine 50 MG/ML Vial IVPUSH PRN (18:59)
--- NOTE | 2019-05-22 19:02 | PCM.POSTAN ---
POST ANESTHESIA ASSESSMENT - MENTAL STATUS Mental Status: Alert - VITAL SIGNS Vital Signs: Last Vital Signs Temp 97.1 05/22/191847 Pulse 87 05/22/19 1848 Resp 22 05/22/191847 BP 156/87 05/22/191847 Pulse Ox 98% 05/22/191847 - RESPIRATORY Respiratory Status: Respiratory Rate WNL, Airway Patent, O2 Saturation Stable, Supplemental Oxygen - CARDIOVASCULAR CV Status: Pulse Rate WNL, Blood Pressure Stable - GASTROINTESTINAL GI Status: No Symptoms - POST OP HYDRATION Hydration Status: Adequate & Stable
--- NOTE | 2019-05-22 19:20 | PCM48HPAN ---
Post Anesthesia Note - EVALUATION WITHIN 48HRS OF ANESTHETIC Vital Signs in Normal Range: Yes Patient Participated in Evaluation: Yes Respiratory Function Stable: Yes Airway Patent: Yes Cardiovascular Function Stable: Yes Hydration Status Stable: Yes Pain Control Satisfactory: Yes Nausea and Vomiting Control Satisfactory: Yes Mental Status Recovered: Yes Vital Signs: Last Vital Signs Temp 36.9 C 05/22/19 16:38 Pulse 68 05/22/19 16:38 Resp 16 05/22/19 16:38 BP 142/88 H 05/22/19 16:38 Pulse Ox 98 05/22/19 16:38
[2019-05-22] MEDS ORDERED: Acetaminophen/HYDROcodone 325-5 MG Tab PO ONE ×2 (19:24→19:25)
[2019-05-22 20:56] VITALS: BP 123/65; PULSE 76
== END 2019-05-22 20:47 | disposition home or self-care (01) ==
LOC: JD.ED 15:46 → JD.SDS 16:06
PROVIDERS: ATTEND Surgery
DX: K80.12 Calculus of gallbladder with acute and chronic cholecystitis without obstruction (principal); J45.909 Unspecified asthma, uncomplicated; E11.9 Type 2 diabetes mellitus without complications; E78.5 Hyperlipidemia, unspecified; F17.210 Nicotine dependence, cigarettes, uncomplicated; I10 Essential (primary) hypertension; E66.01 Morbid (severe) obesity due to excess calories; Z88.2 Allergy status to sulfonamides; Z88.5 Allergy status to narcotic agent; Z88.8 Allergy status to other drugs, medicaments and biological substances; Z68.33 Body mass index [BMI] 33.0-33.9, adult
CPT/HCPCS: 47562; 82962; A9270; J1170; J2001; J2250; J2370; J2405; J2704; J2710; J3010; J3490; 00790; J1100

== ENCOUNTER 2019-12-19 18:37 | Emergency (ER) | payer BC ==
[2019-12-19 18:49] VITALS: PULSE 53
--- NOTE | 2019-12-19 19:09 | EDM.PDOC ---
ED HPI GENERAL MEDICAL PROBLEM - General Chief Complaint: Abdominal Pain Stated Complaint: abdominal pain Time Seen by Provider: 12/19/19 19:07 - History of Present Illness INITIAL COMMENTS - FREE TEXT/NARRATIVE: 29-year-old female presents the emergency room with a possible bowel obstruction. Patient is having increased right upper quadrant discomfort. She is had 3 large BMs daily for the last 3 days. She has some generalized discomfort. No fevers or chills. She was seen in the office today where she had some plain films done that was multiple air-fluid levels. Laboratory evaluation was essentially unremarkable. But I do not have those labs. Patient denies any possibility being . She has no other complaints at this point she has a significant history of having a Star-en-Y gastric bypass procedure. Seen by Dr. Charles in the clinic today Right Upper Abdomen Pain Score (Numeric/FACES): 5 - Related Data Allergies Allergy/AdvReac Type Severity Reaction Status Date / Time cephalexin Allergy Hives Verified 12/19/19 18:49 fluoxetine [From Prozac] Allergy Swelling Verified 12/19/19 18:49 NSAIDS (Non-Steroidal Allergy Stomach Verified 12/19/19 18:49 Anti-Inflamma Upset Sulfa (Sulfonamide Allergy Hives Verified 12/19/19 18:49 Antibiotics) Home Meds: Home Meds Albuterol Inhaler. 2 puff INH Q4H PRN 04/19/15 [History] Losartan/Hctz. 75 mg PO DAILY 04/19/15 [History] Sertraline [Zoloft] 100 mg PO DAILY 09/05/16 [History] Acetaminophen/HYDROcodone [[place] 325-5 MG] 1 tab PO Q4H PRN 14 Days #30 tablet 05/22/19 [Rx] Docusate Sodium [Colace] 100 mg PO BID 20 Days #40 cap 05/22/19 [Rx] Past Medical History Cardiovascular History: Reports: High Cholesterol, Hypertension, Other (See Below) Other Cardiovascular History: atrial septal defect repair 1998 Respiratory History: Reports: Asthma Gastrointestinal History: Reports: GERD, Other (See Below) Other Gastrointestinal History: obesity Psychiatric History: Reports: Depression Endocrine/Metabolic History: Reports: Diabetes, Type II - Past Surgical History GI Surgical History: Reports: Cholecystectomy Social & Family History - Family History Family Medical History: Noncontributory - Tobacco Use Smoking Status *Q: Former Smoker Used Tobacco, but Quit: Yes Month/Year Tobacco Last Used: 2019 - Caffeine Use Caffeine Use: Reports: Tea - Recreational Drug Use Recreational Drug Use: No ED ROS GENERAL - Review of Systems Review Of Systems: See Below Constitutional: Reports: No Symptoms HEENT: Reports: No Symptoms Respiratory: Reports: No Symptoms Cardiovascular: Reports: No Symptoms GI/Abdominal: Reports: Abdominal Pain, Nausea. Denies: Constipation, Diarrhea, Distension, Flatus, Vomiting Musculoskeletal: Reports: No Symptoms Skin: Reports: No Symptoms Neurological: Reports: No Symptoms ED EXAM, GI/ABD - Physical Exam Exam: See Below Exam Limited By: No Limitations General Appearance: Alert, No Apparent Distress Head: Atraumatic, Normocephalic Neck: Normal Inspection, Supple, Non-Tender, Full Range of Motion Respiratory/Chest: No Respiratory Distress, Lungs Clear, Normal Breath Sounds Cardiovascular: Regular Rate, Rhythm, No Edema, No Murmur GI/Abdominal Exam: Normal Bowel Sounds, Soft, Other (Right sided upper abdominal discomfort no distention no rigidity rebound or guarding) Back Exam: Normal Inspection. No: CVA Tenderness (L), CVA Tenderness (R) Extremities: Normal Inspection, No Pedal Edema Neurological: Alert, Oriented, Normal Cognition Course - Vital Signs Last Recorded V/S: Last Vital Signs Temp 36.4 C 12/19/19 18:45 Pulse 53 L 12/19/19 18:45 Resp 18 12/19/19 18:45 BP 131/73 12/19/19 18:45 Pulse Ox 97 12/19/19 18:45 - Orders/Labs/Meds Orders: Active Orders 24 hr Category Date Time Status Abdomen Pelvis w Cont [CT] Stat Exams 12/19/19 19:25 Taken Labs: Laboratory Tests 12/19/19 12/19/19 12/19/19 Range/Units 19:58 19:58 20:37 WBC 8.72 (3.98-10.04) K/mm3 RBC 4.65 (3.98-5.22) M/mm3 Hgb 13.1 (11.2-15.7) gm/dl Hct 40.2 (34.1-44.9) % MCV 86.5 D (79.4-94.8) fl MCH 28.2 (25.6-32.2) pg MCHC 32.6 (32.2-35.5) g/dl RDW Std Deviation 40.9 (36.4-46.3) fL Plt Count 228 D (182-369) K/mm3 MPV 10.0 (9.4-12.3) fl Neut % (Auto) 57.6 (34.0-71.1) % Lymph % (Auto) 34.9 (19.3-51.7) % [place] % (Auto) 4.9 (4.7-12.5) % Eos % (Auto) 2.2 (0.7-5.8) Baso % (Auto) 0.3 (0.1-1.2) % Neut # (Auto) 5.02 (1.56-6.13) K/mm3 Lymph # (Auto) 3.04 (1.18-3.74) K/mm3 [place] # (Auto) 0.43 H (0.24-0.36) K/mm3 Eos # (Auto) 0.19 (0.04-0.36) K/mm3 Baso # (Auto) 0.03 (0.01-0.08) K/mm3 Sodium (136-145) mEq/L Potassium (3.5-5.1) mEq/L Chloride (98-107) mEq/L Carbon Dioxide (21-32) mEq/L Anion Gap (5-15) BUN (7-18) mg/dL Creatinine (0.55-1.02) mg/dL Est Cr Clr Drug Dosing mL/min Estimated GFR (MDRD) (>60) mL/min BUN/Creatinine Ratio (14-18) Glucose (74-106) mg/dL Calcium (8.5-10.1) mg/dL Total Bilirubin (0.2-1.0) mg/dL AST (15-37) U/L ALT (14-59) U/L Alkaline Phosphatase (46-116) U/L Total Protein (6.4-8.2) g/dl Albumin (3.4-5.0) g/dl Globulin gm/dL Albumin/Globulin Ratio (1-2) Lipase (73-393) U/L Urine Color Yellow (Yellow) Urine Appearance Clear (Clear) Urine pH 6.0 (5.0-8.0) Ur Specific [place] 1.025 (1.005-1.030) Urine Protein Negative (Negative) Urine Glucose (UA) Negative (Negative) Urine Ketones Negative (Negative) Urine Occult Blood Negative (Negative) Urine Nitrite Negative (Negative) Urine Bilirubin Negative (Negative) Urine Urobilinogen 1.0 (0.2-1.0) Ur Leukocyte Esterase Negative (Negative) Urine HCG, Qual Negative (NEGATIVE) 12/19/19 Range/Units 20:37 WBC (3.98-10.04) K/mm3 RBC (3.98-5.22) M/mm3 Hgb (11.2-15.7) gm/dl Hct (34.1-44.9) % MCV (79.4-94.8) fl MCH (25.6-32.2) pg MCHC (32.2-35.5) g/dl RDW Std Deviation (36.4-46.3) fL Plt Count (182-369) K/mm3 MPV (9.4-12.3) fl Neut % (Auto) (34.0-71.1) % Lymph % (Auto) (19.3-51.7) % [place] % (Auto) (4.7-12.5) % Eos % (Auto) (0.7-5.8) Baso % (Auto) (0.1-1.2) % Neut # (Auto) (1.56-6.13) K/mm3 Lymph # (Auto) (1.18-3.74) K/mm3 [place] # (Auto) (0.24-0.36) K/mm3 Eos # (Auto) (0.04-0.36) K/mm3 Baso # (Auto) (0.01-0.08) K/mm3 Sodium 139 (136-145) mEq/L Potassium 3.9 (3.5-5.1) mEq/L Chloride 102 (98-107) mEq/L Carbon Dioxide 25 (21-32) mEq/L Anion Gap 15.9 H (5-15) BUN 12 (7-18) mg/dL Creatinine 0.6 (0.55-1.02) mg/dL Est Cr Clr Drug Dosing 132.11 mL/min Estimated GFR (MDRD) > 60 (>60) mL/min BUN/Creatinine Ratio 20.0 H (14-18) Glucose 76 (74-106) mg/dL Calcium 9.3 (8.5-10.1) mg/dL Total Bilirubin 0.4 (0.2-1.0) mg/dL AST 18 (15-37) U/L ALT 27 (14-59) U/L Alkaline Phosphatase 37 L (46-116) U/L Total Protein 7.1 (6.4-8.2) g/dl Albumin 3.9 (3.4-5.0) g/dl Globulin 3.2 gm/dL Albumin/Globulin Ratio 1.2 (1-2) Lipase 55 L (73-393) U/L Urine Color (Yellow) Urine Appearance (Clear) Urine pH (5.0-8.0) Ur Specific [place] (1.005-1.030) Urine Protein (Negative) Urine Glucose (UA) (Negative) Urine Ketones (Negative) Urine Occult Blood (Negative) Urine Nitrite (Negative) Urine Bilirubin (Negative) Urine Urobilinogen (0.2-1.0) Ur Leukocyte Esterase (Negative) Urine HCG, Qual (NEGATIVE) Meds: Medications Discontinued Medications Generic Name Dose Route Start Last Admin Trade Name Freq PRN Reason Stop Dose Admin Lactated Ringer's 1,000 mls @ 999 mls/hr 12/19/19 19:24 12/19/19 20:24 Ringers, Lactated IV 12/19/19 20:24 999 mls/hr .BOLUS ONE Administration - Re-Assessments/Exams Free Text/Narrative Re-Assessment/Exam: 12/19/19 19:42 I discussed patient's case with Dr. Charles, her recommendation is to check a abdominal pelvic CT 12/19/19 22:59 Is her really unremarkable she may be a little dry. CT was done and does show some mild bloating and constipation without any acute abdominal pelvic pathology otherwise identified. We will discharge at this time Departure - Departure Time of Disposition: 23:01 Disposition: Home, Self-Care 01 Clinical Impression: Constipation - Discharge Information Referrals: Maribel Khalil PA-C [Primary Care Provider] - Forms: ED Department Discharge Additional Instructions: Return to the emergency room with any questions problems or worsening symptoms. Push lots of fluids. Start MiraLAX half dose in the morning half dose in the evening. Follow-up with Dr. Charles later this week. Sepsis Event Note (ED) - Evaluation Sepsis Screening Result: No Definite Risk - Focused Exam Vital Signs: Vital Signs Temp Pulse Resp BP Pulse Ox 12/19/19 18:45 36.4 C 53 L 18 131/73 97 - My Orders Last 24 Hours: My Active Orders 12/19/19 19:25 Abdomen Pelvis w Cont [CT] Stat - Assessment/Plan Last 24 Hours: My Active Orders 12/19/19 19:25 Abdomen Pelvis w Cont [CT] Stat
[2019-12-19] MEDS ORDERED: Lactated Ringers 1,000 ML IV ONE (19:24)
[2019-12-19 23:13] VITALS: BP 118/73
== END 2019-12-19 23:14 | disposition home or self-care (01) ==
LOC: JD.ED 18:37
DX: K59.00 Constipation, unspecified (principal); I10 Essential (primary) hypertension; J45.909 Unspecified asthma, uncomplicated; F32.9 Major depressive disorder, single episode, unspecified; E11.9 Type 2 diabetes mellitus without complications; E66.9 Obesity, unspecified; Z68.29 Body mass index [BMI] 29.0-29.9, adult; Z87.891 Personal history of nicotine dependence; Z88.1 Allergy status to other antibiotic agents; Z88.8 Allergy status to other drugs, medicaments and biological substances; Z88.6 Allergy status to analgesic agent; Z88.2 Allergy status to sulfonamides; Z79.899 Other long term (current) drug therapy
CPT/HCPCS: 36415; 74177; 80053; 81003; 81025; 83690; 85025; 96360; 99284; J7120

== ENCOUNTER 2020-12-21 11:17 | Emergency (ER) | payer BC ==
[2020-12-21 11:29] VITALS: BP 106/59; PULSE 51
--- NOTE | 2020-12-21 11:52 | EDM.PDOC ---
ED HPI GENERAL MEDICAL PROBLEM - General Chief Complaint: Laceration Stated Complaint: R THUMB LAC Time Seen by Provider: 12/21/20 11:29 Source of Information: Reports: Patient, RN Notes Reviewed History Limitations: Reports: No Limitations - History of Present Illness INITIAL COMMENTS - FREE TEXT/NARRATIVE: Patient is a 30-year-old female who presents to the ER for evaluation of a right thumb laceration. Patient was using a mandolin slicer at home in her kitchen, when she completely avulsed part of the distal tip of her right thumb. She did also take a portion of the distal nail as well. She thought it was worse than what it was before she came in, it was bleeding quite a bit but has since kind of stopped bleeding. She has applied pressure while waiting to be seen. She is denying any numbness or tingling to the injury. She has all range of motion. She believes she is up-to-date on her tetanus vaccine. Patient denies any other sick-like symptoms, fever/chills, cough/shortness of breath, nausea/vomiting/diarrhea. 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 2 puff INH Q4H PRN 04/19/15 [History] traMADol [Ultram] 50 mg PO ASDIRECTED 12/21/20 [History] Past Medical History Cardiovascular History: Reports: High Cholesterol, Hypertension, Other (See Below) Other Cardiovascular History: atrial septal defect repair 1998 Respiratory History: Reports: Asthma Gastrointestinal History: Reports: GERD, Other (See Below) Other Gastrointestinal History: obesity Psychiatric History: Reports: Depression Endocrine/Metabolic History: Reports: Diabetes, Type II Other Endocrine/Metabolic History: diet controlled - Infectious Disease History Infectious Disease History: Reports: Chicken Pox, Shingles - Past Surgical History GI Surgical History: Reports: Cholecystectomy Social & Family History - Family History Family Medical History: No Pertinent Family History - Tobacco Use Tobacco Use Status *Q: Current Every Day Tobacco User Years of Tobacco use: 1 Packs/Tins Daily: 0.1 - Caffeine Use Caffeine Use: Reports: Coffee, Soda - Recreational Drug Use Recreational Drug Use: No ED ROS GENERAL - Review of Systems Review Of Systems: Comprehensive ROS is negative, except as noted in HPI. ED EXAM, SKIN/RASH Exam: See Below Exam Limited By: No Limitations General Appearance: Alert, WD/WN, No Apparent Distress Respiratory/Chest: No Respiratory Distress, Lungs Clear, Normal Breath Sounds, No Accessory Muscle Use, Chest Non-Tender Cardiovascular: Normal Peripheral Pulses, Regular Rate, Rhythm, No Edema Peripheral Pulses: 2+: Radial (L), Radial (R) Extremities: Normal Range of Motion, Normal Capillary Refill Neurological: Alert, Oriented, Normal Cognition, No Motor/Sensory Deficits Psychiatric: Normal Affect, Normal Mood Skin: Warm, Dry, Normal Color, No Rash, Wound/Incision (complete avulsion type injury to distal right thumb, no skin flap was left, a small portion of the distal nail was also avulsed.) ED SKIN PROCEDURES - Laceration/Wound Repair Right Distal Digit - 1st (Thumb) Appearance: Superficial, Clean Distal NVT: Neuro & Vascular Intact, No Tendon Injury Skin Prep: Chlorhexidine (Hibiciens), Saline Exploration/Debridement/Repair: Wound Explored, In a Bloodless Field, Explored to Base, No Foreign Material Found Closed with: Other (Pressure dressing was put in place over the avulsion wound) Lac/Wound length In cm: 1 (oval shaped 1cm x 0.75cm) Sterile Dressing Applied: Nurse (a pressure type dressing will be placed) Tetanus Status Addressed: Yes Complications: No Course - Vital Signs Last Recorded V/S: Last Vital Signs Temp 97.0 F 12/21/20 11:28 Pulse 51 L 12/21/20 11:28 Resp 20 12/21/20 11:28 BP 106/59 L 12/21/20 11:28 Pulse Ox 98 12/21/20 11:28 Departure - Departure Time of Disposition: 11:52 Disposition: Home, Self-Care 01 Condition: Good Clinical Impression: Laceration of right thumb with damage to nail Qualifiers: Encounter type: initial encounter Foreign body presence: without foreign body Qualified Code(s): S61.111A - Laceration without foreign body of right thumb with damage to nail, initial encounter - Discharge Information *PRESCRIPTION DRUG MONITORING PROGRAM REVIEWED*: No *COPY OF PRESCRIPTION DRUG MONITORING REPORT IN PATIENT DIYA: No Instructions: Nonsutured Laceration Care Referrals: Maribel Khalil PA-C [Primary Care Provider] - Additional Instructions: You were evaluated in the ER today for your avulsion type injury to your right thumb. Unfortunately there was nothing to repair with stitches or sutures. Your wound was cleaned, and dressed with a pressure bandage type wound. This should stay in place for the next 24 to 48 hours and may be removed Wednesday morning or Wednesday afternoon. You may want to try to keep the area dressed with a more occlusive type dressing, as it will likely be pretty sensitive for the next few days. Try to keep it as clean and dry as you can, you may cleanse with warm soapy water, and apply topical bacitracin directly to the wound bed if you should wish to apply a topical bandage. You may want to try using a little bit of Tylenol every 6 hours as needed for ongoing pain management. Do not exceed over 4000 mg Tylenol in a 24-hour time span. Please watch out for signs of infection like redness, swelling or drainage at the wound site, as this would mean that you could need some antibiotics. Do not hesitate to return to the ER at any time if symptoms change or worsen. Sepsis Event Note (ED) - Focused Exam Vital Signs: Vital Signs Temp Pulse Resp BP Pulse Ox 12/21/20 11:28 97.0 F 51 L 20 106/59 L 98
== END 2020-12-21 12:38 | disposition home or self-care (01) ==
LOC: JD.ED 11:17
DX: S61.111A Laceration without foreign body of right thumb with damage to nail, initial encounter (principal); E78.00 Pure hypercholesterolemia, unspecified; I10 Essential (primary) hypertension; E11.9 Type 2 diabetes mellitus without complications; Z88.1 Allergy status to other antibiotic agents; Z88.2 Allergy status to sulfonamides; Z88.8 Allergy status to other drugs, medicaments and biological substances; Z72.0 Tobacco use; W26.8XXA Contact with other sharp object(s), not elsewhere classified, initial encounter; Y92.000 Kitchen of unspecified non-institutional (private) residence as the place of occurrence of the external cause
CPT/HCPCS: 12001; 99282-25

== ENCOUNTER 2022-02-24 16:27 | Emergency (ER) | payer BC, OTHER ==
[2022-02-24 17:08] VITALS: BP 125/75; PULSE 53
[2022-02-24] MEDS ORDERED: Dicyclomine 10 MG Cap PO ONE (17:11)
== END 2022-02-24 19:16 | disposition home or self-care (01) ==
LOC: JD.ED 16:27
DX: O99.891 Other specified diseases and conditions complicating pregnancy (principal); R10.84 Generalized abdominal pain; O10.911 Unspecified pre-existing hypertension complicating pregnancy, first trimester; O99.511 Diseases of the respiratory system complicating pregnancy, first trimester; J45.909 Unspecified asthma, uncomplicated; O99.611 Diseases of the digestive system complicating pregnancy, first trimester; K21.9 Gastro-esophageal reflux disease without esophagitis; O24.111 Pre-existing type 2 diabetes mellitus, in pregnancy, first trimester; E11.8 Type 2 diabetes mellitus with unspecified complications; Z88.1 Allergy status to other antibiotic agents; Z88.8 Allergy status to other drugs, medicaments and biological substances; Z88.2 Allergy status to sulfonamides; Z88.6 Allergy status to analgesic agent; Z79.899 Other long term (current) drug therapy; Z3A.01 Less than 8 weeks gestation of pregnancy
CPT/HCPCS: 81001; 99283; A9270

== ENCOUNTER 2023-09-15 23:19 | Emergency (ER) | payer OTHER ==
[2023-09-15 23:35] VITALS: BP 127/67; PULSE 72
[2023-09-16] MEDS: Mupirocin Oint 22 GM Tube TOP ONE (00:07)
[2023-09-16] MEDS: Amoxicillin/Clavulanate K 875-125 MG Tab PO ONE (00:15)
== END 2023-09-16 00:54 | disposition home or self-care (01) ==
LOC: JD.ED 23:19
DX: S92.532B Displaced fracture of distal phalanx of left lesser toe(s), initial encounter for open fracture (principal); I10 Essential (primary) hypertension; E11.9 Type 2 diabetes mellitus without complications; K21.9 Gastro-esophageal reflux disease without esophagitis; Z88.2 Allergy status to sulfonamides; Z88.1 Allergy status to other antibiotic agents; Z88.8 Allergy status to other drugs, medicaments and biological substances; Z90.49 Acquired absence of other specified parts of digestive tract; W20.8XXA Other cause of strike by thrown, projected or falling object, initial encounter
CPT/HCPCS: 73660; 99283; A9270